=== PATIENT | female | born 1980 | race Caucasian/White ===

== ENCOUNTER → 2019-12-07 10:01 | Outpatient (CLI) | payer OTHER, SELFPAY ==
--- NOTE | 2019-12-07 10:04 | DI.RAD.S_ITS ---
PROCEDURE: XR LUMBAR SPINE MIN 4V INDICATIONS: Left axial low back pain TECHNIQUE: 5 views of the lumbar spine were acquired. COMPARISON: None. FINDINGS: Bones: 5 nonrib-bearing vertebrae are present. There is normal bony alignment. No vertebral body compression fractures. Degenerative endplate changes are noted at L4-5 level. No suspicious bony lesions. Soft tissues: Overlying bowel gas pattern is normal. No suspicious soft tissue calcifications. Oblique images: No pars defects. No significant bony foraminal stenosis is seen. IMPRESSION: Mild degenerative endplate changes at L4-5 level. No compression fracture or spondylolisthesis. No significant bony foraminal stenosis. No gross pars defects. Dictated by: Bob Rdedy M.D. on 12/07/2019 at 11:37 Approved by: Bob Reddy M.D. on 12/07/2019 at 11:38
== END ==
PROVIDERS: PCP Family Medicine; Referring Provider Physical Medicine & Rehabilitation; Visit Provider Physical Medicine & Rehabilitation
DX: M54.5 Low back pain (principal); M47.26 Other spondylosis with radiculopathy, lumbar region
CPT/HCPCS: 72110

== ENCOUNTER → 2019-12-13 09:03 | Outpatient (CLI) | payer OTHER, SELFPAY ==
--- NOTE | 2019-12-13 09:05 | DI.MRI.S_ITS ---
PROCEDURE: MR LUMBAR SPINE WO CON INDICATIONS: Left axial low back pain TECHNIQUE: Noncontrast sagittal T1 spin echo and T2 fast echo, sagittal STIR, axial T1 and T2 fast spin echo through the lumbar spine. In cases with scoliosis, additional coronal T2 fast spin echo may be performed. COMPARISON: Outside Facility, RG, MRI L-SPINE W/O CONTRAST, 01/16/2017, 16:25. [facility], CR, XR LUMBAR SPINE MIN 4V, 12/07/2019, 10:14. FINDINGS: Image quality: Excellent. Alignment and Curvature: There is normal bony alignment. Bone Marrow: Marrow is of normal overall signal. No acute vertebral body compression fractures. Spinal Cord: Conus medullaris terminates at the L1-L2 level. Visualized cord demonstrates normal signal and size. Paraspinous Soft Tissues: No paravertebral masses. T12-L1: Normal appearance. L1-L2: Mild facet hypertrophy. No canal stenosis or foraminal stenosis. L2-L3: Mild facet hypertrophy. No canal stenosis or foraminal stenosis. L3-L4: Facet hypertrophy. No canal stenosis or foraminal stenosis. L4-L5: Interval left hemilaminectomy. Disc extrusion is no longer present. Findings consistent with recurrent moderate to large central posterior disc protrusion which indents on the thecal sac abuts the bilateral L5 nerve roots in the lateral recesses. Left foraminal disc bulge also abuts the exiting left L4 nerve root in the foramen, resulting in mild to moderate left foraminal stenosis. Mild bilateral facet hypertrophy. L5-S1: Progression of bilateral facet hypertrophy. No canal stenosis. Moderate bilateral foraminal narrowing with mild flattening deformity of the exiting bilateral L5 nerve roots. IMPRESSION: 1. Interval left hemilaminectomy at L4-L5. Recurrent moderate to large central posterior disc protrusion, indenting on the thecal sac, abutting the bilateral L5 nerve roots in the lateral recesses. Left foraminal disc bulge also abuts the exiting left L4 nerve root in the foramen. 2. Multilevel facet hypertrophy. 3. Multilevel foraminal narrowing as described above. Dictated by: Mark Robledo M.D. on 12/14/2019 at 9:51 Approved by: Mark Robledo M.D. on 12/14/2019 at 10:00
== END ==
PROVIDERS: PCP Family Medicine; Referring Provider Family Medicine; Visit Provider Physical Medicine & Rehabilitation
DX: M54.5 Low back pain (principal); M51.16 Intervertebral disc disorders with radiculopathy, lumbar region; M48.061 Spinal stenosis, lumbar region without neurogenic claudication; M48.07 Spinal stenosis, lumbosacral region; Z98.890 Other specified postprocedural states
CPT/HCPCS: 72148

== ENCOUNTER 2019-12-16 13:11 | Outpatient (CLI) | payer OTHER, SELFPAY ==
[2019-12-16] VITALS (9 sets, daily range): BP systolic 114–128; BP diastolic 69–100; PULSE 77–88; RESP 16–18; TEMP 36.3; O2SAT 97–100
--- NOTE | 2019-12-16 13:12 | DI.RAD.S_ITS ---
PROCEDURE: PAIN L/S TRANSFORAM INJECT CHRISSIE COMPARISON: None. INDICATIONS: SPONDYLOSIS FINDINGS: Fluoroscopic spot filming was performed to verify placement of spinal needles at the L3-L4, L4-L5 and L5-S1 level(s), as labeled on the films. Appropriate location(s) of the needle tip(s) was confirmed by injection of iodinated contrast. Dictated by: Otto Haywood M.D. on 12/16/2019 at 16:46 Approved by: Otto Haywood M.D. on 12/16/2019 at 16:46
[2019-12-16] MEDS: fentaNYL 100 MCG/2 ML INJ 50 MCG IV (14:18)
[2019-12-16] MEDS: MIDAZOLAM 5 MG/5 ML VIAL IV (14:18)
[2019-12-16] MEDS: BUPIVACAINE 0.5% (PF) VIAL 5 ML INJ (14:25)
[2019-12-16] MEDS: LIDOCAINE 1% 20 ML 10 ML INJ (14:25)
[2019-12-16] MEDS: IOPAMIDOL 15 ML VIAL 3 ML INJ (14:25)
[2019-12-16] MEDS: BETAMETHASONE 30 MG/5 ML MDV 12 MG INJ (14:25)
--- NOTE | 2019-12-16 14:27 | PC.NURSE ---
ASSISTING PT OFF TABLE AND TRANSPORTING TO POST PROC AREA IN STABLE CONDITION. PASSING RN CARE OF PT OFF TO VIKI Hairston RN.
--- NOTE | 2019-12-16 14:29 | P.PCN_ITS ---
Procedures Date/Time Date of procedure: 12/16/19 Time of procedure: 14:30 General Procedure description: PREOP DIAGNOSIS 1. FACET ARTHROPATHY, 2. AXIAL LBP, 3. MULTILEVEL DDD, POST OP DIAGNOSIS 1. FACET ARTHROPATHY, 2. AXIAL LBP, 3. MULTILEVEL DDD, PROCEDURES 1. FLUORSCOPICALLY GUIDED CONTRAST CONTROLLED FACET JOINT INJECTIONS LEFT L3/4, L4/5, L5/S1 SURGEON: Carlos Landa, INDICATIONS Cecile is referred by for treatment of Axial LBP FINDINGS Multilevel Facet Arthropathy with Clinically significant axial LBP DESCRIPTION OF PROCEDURE Fluoroscopically guided, contrast-controlled left L3/4, L4/5, L5/S1 facet joint injections. Following review of allergy and review of potential side effects and complications, including, but not necessarily limited to, infection, allergic reaction, local tissue breakdown, stroke, temporary or permanent nerve injury, paralysis, and possible , the patient indicated that the patient understood and agreed to proceed. An informed consent document was signed by the patient, witnessed by a nurse, and placed in the patient's chart. Additionally, other treatment options including medications, modalities, and physical therapy were reviewed with the patient. After review of previous anaesthesic history and IV conscious sedation the patient was deemed safe to proceed with todays procedure with IV conscious sedation as ASA class II designation. Safety time-out was performed to confirm patient ID, procedure to be performed and site of procedure. IV sedation was accomplished with a combination of 5mg of Versed and 50mcg of Fentanylwas administered by the RN after DO order, titrated to patient comfort during the course of the procedure while the patient remained responsive to all verbal commands. In the prone position, following sterile prep and drape of the lumbar region, the posterior aspect of the left L3/4, L4/5, L5/S1 facet joints were identified fluoroscopically. The skin was anesthetized via a 25-gauge 1.5-inch needle with 1% lidocaine solution into the corresponding facet joints. At this point, a 22- gauge 3.5-inch spinal needle was atraumatically introduced and advanced under fluoroscopic guidance into the corresponding facet joints. Following negative aspiration, injections of approximately 0.2-cc of Isovue 200 confirmed interarticular placement without vascular uptake. Radiological data, including multiple fluoroscopic views of the lumbosacral spine, reveal a spinal needle at the left L3/4, L4/5, L5/S1 facet joints. Subsequent views show flow of contrast material both superiorly and inferiorly within the joint space without vascular or intrathecal uptake. At this point, a total of 0.5 cc including a mixture of 0.25cc Marcaine and 0.25cc betamethasone was injected without complication into each of the corresponding facet joints. The procedure tolerated the procedure well without signs or symptoms of complications prior to transfer to the recovery area continued monitoring without incident. The patient was then transferred to the recovery area where they were observed for an appropriate period of time after the injection. The patient reported a VAS score of 7 prior to the procedure and a post-procedure VAS of 0. Total Fluoroscopy Time: 10 seconds Total Conscious Sedation Time: 24min POST OP INSTRUCTIONS The patient was provided a Pain Log to continue to record their response to the target-specific procedure prior to follow-up visit with their referring physician. Additionally, specific post-injection care instructions and a contact number to our office were provided if concerns arise regarding possible complications associated with the procedure are suspected. Carlos Landa DO Complications: none
--- NOTE | 2019-12-16 14:52 | PC.NURSE ---
Addendum entered by Ofe Meadows R.N. 12/16/19 15:21: Zofran 4 mg IV administered for nausea, good relief, no emesis. Original Note: 1440: Received patient post procedure, awake and alert via WC, assisted to chair. VSS upon arrival. C/O nausea. Derek at bedside
[2019-12-16] MEDS: ONDANSETRON 4 MG/2 ML INJ IV (15:00)
== END 2019-12-16 15:15 | disposition home or self-care (01) ==
LOC: RAD 13:12
PROVIDERS: PCP Family Medicine; Referring Provider Physical Medicine & Rehabilitation; Visit Provider Physical Medicine & Rehabilitation
DX: M47.816 Spondylosis without myelopathy or radiculopathy, lumbar region (principal); M47.817 Spondylosis without myelopathy or radiculopathy, lumbosacral region; M54.5 Low back pain; M51.36 Other intervertebral disc degeneration, lumbar region; M51.37 Other intervertebral disc degeneration, lumbosacral region
CPT/HCPCS: 64483; 64493; 64494; 64495; 99152; 99153; J0702; J2250; J2405; J3010

== ENCOUNTER → 2020-12-21 12:53 | Outpatient (CLI) | payer OTHER, SELFPAY ==
[2020-12-21 13:53] LABS: COVID19 -Nasal RAPID Negative (Negative)
== END ==
PROVIDERS: PCP Family Medicine; Visit Provider Physical Medicine & Rehabilitation
DX: Z20.822 Contact with and (suspected) exposure to COVID-19 (principal)
CPT/HCPCS: 87635; C9803

== ENCOUNTER 2020-12-22 14:12 | Outpatient (CLI) | payer OTHER, SELFPAY ==
[2020-12-22] VITALS (9 sets, daily range): BP systolic 109–142; BP diastolic 56–84; PULSE 82–91; RESP 14–19; TEMP 36.4–36.6; O2SAT 100
--- NOTE | 2020-12-22 14:13 | DI.RAD.S_ITS ---
PROCEDURE: PAIN L/S TRANSFORAMINAL INJECT INDICATIONS: SPONDYLOSIS COMPARISON: [facility], XA, PAIN L/SI FACET INJ/BLK 1STL, 12/16/2019, 13:19. [facility], MR, MR LUMBAR SPINE WO CON, 12/13/2019, 9:10. [facility], CR, XR LUMBAR SPINE MIN 4V, 12/07/2019, 10:14. FINDINGS: Fluoroscopic spot filming was performed to verify placement of spinal needles at the left L4-L5 level(s), as labeled on the films. Appropriate location(s) of the needle tip(s) was confirmed by injection of iodinated contrast. IMPRESSION: Fluoroscopy for pain management. Dictated by: Tom Quesada M.D. on 12/22/2020 at 15:26 Approved by: Tom Quesada M.D. on 12/22/2020 at 15:26
[2020-12-22] MEDS: MIDAZOLAM 5 MG/5 ML VIAL IV (14:53)
[2020-12-22] MEDS: fentaNYL 100 MCG/2 ML INJ 50 MCG IV (14:53)
[2020-12-22] MEDS: BUPIVACAINE 0.25% (PF) VIAL 2 ML INJ (14:56)
[2020-12-22] MEDS: BETAMETHASONE 30 MG/5 ML MDV 6 MG INJ (14:56)
[2020-12-22] MEDS: DEXAMETHASONE 10 MG/ML VIAL 20 MG INJ (14:56)
[2020-12-22] MEDS: IOPAMIDOL 15 ML VIAL 3 ML INJ (14:58)
[2020-12-22] MEDS: ONDANSETRON 4 MG/2 ML INJ IV (15:01)
--- NOTE | 2020-12-22 15:08 | P.PCN_ITS ---
Date/Time/Diagnoses Date of procedure: 12/22/20 Time of procedure: 15:08 Pre-procedure diagnosis: 1. FORAMINAL STENOSIS WITH LE SYMPTOMS Post-procedure diagnosis: same Procedure Notes Procedure: 1. FLUOROSCOPICALLY GUIDED CONTRAST CONTROLLED TRANSFORAMINAL EPIDURAL STEROID INJECTION - LEFT L4/5 Indications: Cecile is referred by Dr. Thomas for treatment of Foraminal Stenosis with Left LE Symptoms Physician: Carlos Landa Total Fluoroscopy time (seconds): 11 Total sedation minutes: 11 Complications: none Procedure in detail & Post-procedure care: FINDINGS Foraminal Nerve Root Compression secondary to disc disease and facet hypertrophy DESCRIPTION OF PROCEDURE Following review of allergy and review of potential side effects and complications, including, but not necessarily limited to, infection, allergic reaction, local tissue breakdown, stroke, temporary or permanent nerve injury, paralysis, and possible , the patient indicated that the patient understood and agreed to proceed. An informed consent document was signed by the patient, witnessed by a nurse, and placed in the patient's chart. Additionally, other treatment options including medications, modalities, and physical therapy were reviewed with the patient. After review of previous anaesthesic history and IV conscious sedation the patient was deemed safe to proceed with today?s procedure with IV conscious sedation as ASA class II designation. Safety time-out was performed to confirm patient ID, procedure to be performed and site of procedure. IV sedation was accomplished with a combination of 2mg of Versed and 50mcg of Fentanyl administered by the RN after DO order, titrated to patient comfort during the course of the procedure while the patient remained responsive to all verbal commands In the prone position following sterile prep and drape of the lumbar region, the left L4/5 posterior neuroforamen was identified fluoroscopically. The skin was anesthetized via a 25-gauge 1.5-inch needle with 1% lidocaine solution. At this point, a 25-gauge 3.5-inch spinal needle was atraumatically introduced and advanced under fluoroscopic guidance through the posterior left L4/5 neuroforamen to approximately the anterior aspect of the canal. Depth was confirmed on lateral view. Following negative aspiration, injection of approximately 1.5 cc of Isovue 200 under live fluoroscopy in the AP view confirmed excellent flow along the nerve root, into the epidural space without vascular or intrathecal uptake observed Radiological data, including multiple fluoroscopic views of the lumbosacral spine, reveal a spinal needle at the left L4/5 posterior neuroforamen. Subsequent views show flow of contrast material flowing superiorly and inferiorly along the nerve root confirming epidural flow. Subsequently, a test dose of 1.5 cc of 1% lidocaine solution was administered and patient was observed for two minutes for signs or symptoms of complications, including abdominal pain, shortness of breath, bilateral upper or lower extremity weakness, nausea and vomiting, prior to steroid injection. At this point, a total of 3cc or 20mg of dexamethasone and 6mg of betamethasone was injected without incident. The procedure tolerated the procedure well without signs or symptoms of complications prior to transfer to the recovery area continued monitoring without incident. The patient was then transferred to the recovery area where they were observed for an appropriate time after the injection. The patient reported a VAS score of 7 prior to the procedure and a post- procedure VAS of 0. POST OP INSTRUCTIONS The patient was provided a Pain Log to continue to record their response to the target-specific procedure prior to follow-up visit with their referring physician. Additionally, specific post-injection care instructions and a contact number to our office were provided if concerns arise regarding possible complications associated with the procedure are suspected.
== END 2020-12-22 15:35 | disposition home or self-care (01) ==
LOC: RAD 14:12
PROVIDERS: PCP Family Medicine; Referring Provider Family Medicine; Visit Provider Physical Medicine & Rehabilitation
DX: M48.061 Spinal stenosis, lumbar region without neurogenic claudication (principal); M51.16 Intervertebral disc disorders with radiculopathy, lumbar region
CPT/HCPCS: 64483; 99152; J0702; J1100; J2250; J2405; J3010